=== PATIENT | female | born 2000 | race Caucasian/White ===

== ENCOUNTER → 2019-01-14 | Outpatient (CLI) | payer BC ==
[~2019-01-14] MED LIST: ALBU90OI INH; BUDE6HFA INH; ERYES200SU PO; HYDACE7.5L PO; IBUP600 PO
[2019-01-15 23:06] LABS: CHLAMYDIA TRACHOMATIS, NAA Negative (Negative); NEISSERIA GONORRHOEAE, NAA Negative (Negative)
== END | disposition home or self-care (01) ==
LOC: LAB SHORT 11:15 → LAB 11:15
PROVIDERS: Nurse Practitioner Women's Health
DX: Z11.3 Encounter for screening for infections with a predominantly sexual mode of transmission (principal); N89.8 Other specified noninflammatory disorders of vagina
CPT/HCPCS: 87070; 87205; 87491; 87591

== ENCOUNTER → 2019-01-20 | Outpatient (CLI) | payer BC | END | disposition home or self-care (01) | LOC: LAB 18:43 → LAB SHORT 18:43 | DX: N76.4 Abscess of vulva (principal) | CPT/HCPCS: 87070; 87075; 87205 ==

== ENCOUNTER → 2022-06-09 | Outpatient (CLI) | payer OTHER ==
[~2022-06-09] MED LIST changes: +PROC5 PO
== END ==
LOC: LAB SHORT 15:18 → LAB 15:18
PROVIDERS: Obstetrics & Gynecology
DX: Z01.419 Encounter for gynecological examination (general) (routine) without abnormal findings (principal)
CPT/HCPCS: G0145

== ENCOUNTER 2022-07-15 11:16 | Day surgery (SDC) | payer OTHER ==
[~2022-07-15] VITALS: Ht 170.2 cm; Wt 60.4 kg
[2022-07-15] MEDS ORDERED: DULERA 100 MCG/13 GM INH (11:32)
--- NOTE | 2022-07-15 12:11 | NUR ---
07/15/22 [address] SAV GALAVIZO TO PROCEEDURE. DAILY USE OF RESCUE INHALER
--- NOTE | 2022-07-15 12:41 | NUR ---
07/15/22 1241 Socorro Francois 0.1MG OF EPI ADDED TO 20MLS OF ROPIVACAINE 0.5% TO CREATE A LOCAL SOLUTION OF ROPIVACAINE 0.5% WITH EPI 1:200,000. LOCAL POURED ONTO STERILE FIELD FOR USE DURING CASE.
--- NOTE | 2022-07-15 14:00 | NUR ---
07/15/22 Shereen Sheehan IN RECLINER RELAXING STATES " PAIN IN GETTING LESS AND NAUSEA IS GETTING BETTER" . IS BY SIDE. PT IS DRINKING SPITE AND EATING CRACKERS.
== END 2022-07-15 14:33 | disposition home or self-care (01) ==
LOC: ORSCSDS 11:16
PROVIDERS: Obstetrics & Gynecology
PROC: 0UBF4ZX Excision of Cul-de-sac, Percutaneous Endoscopic Approach, Diagnostic (ICD-10-PCS; principal; 2022-07-15 12:30)
DX: N80.8 Other endometriosis (principal); J45.909 Unspecified asthma, uncomplicated; Z79.899 Other long term (current) drug therapy; F17.290 Nicotine dependence, other tobacco product, uncomplicated
CPT/HCPCS: 88305; A9270; J0171; J1100; J1885; J2250; J2405; J2704; J2795; J3010; J7120